=== PATIENT | female | born 1985 | race Caucasian/White ===

== ENCOUNTER → 2021-06-16 15:55 | Outpatient (CLI) | payer OTHER, SELFPAY ==
--- NOTE | ~2021-06-16 | US_ITS ---
EXAMINATION: US pelvic complete EXAM DATE: 06/16/2021 16:10 INDICATION: IUD . TECHNIQUE: Pelvic transabdominal sonogram was performed. There are multiple grayscale and Doppler im ages available for interpretation. There is no prior study for comparison. FINDINGS: Uterus measures 7.4 x 3.6 x 4.0 cm, with IUD centrally located inside the endometrial cavi ty. Endometrial stripe measures 4 mm, within normal limits. There is no free pelvic fluid. Right adnexa: The ovary measures 1.8 x 2.2 x 2.0 cm and is morphologically normal. Ovarian vascular f low confirmed. Left adnexa: The ovary measures 1.7 x 2.4 x 2.5 cm and is morphologically normal. Ovarian vascular fl ow confirmed. IMPRESSION: 1. Unremarkable pelvic ultrasound exam. Reviewed, dictated and finalized at location B. 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
== END ==
PROVIDERS: Visit Provider Nurse Practitioner
DX: Z30.431 Encounter for routine checking of intrauterine contraceptive device (principal)
CPT/HCPCS: 76856

== ENCOUNTER 2022-05-01 17:22 | Emergency (ER) | payer OTHER, SELFPAY ==
[2022-05-01 17:51] VITALS: BP 100/52; PULSE 98; RESP 16; TEMP 37.6; O2SAT 100
--- NOTE | 2022-05-01 18:50 | ED.URI ---
HPI - URI/Sore Throat General Chief Complaint: Upper Respiratory Infection Stated Complaint: body aches/chills/fever Time Seen by Provider: 05/01/22 18:40 Source: patient and RN notes reviewed Mode of arrival: ambulatory Limitations: no limitations History of Present Illness HPI Narrative: 37-year-old female presented for complaints of sore throat, body aches, headache and chills. She endorses decreased appetite, fatigue and slept all day today. She endorses as her daughter is sick with similar symptoms. Denies shortness of breath, wheezing, nausea, vomiting, diarrhea. Took otc med without relief. MD elicited complaint: cough Related Data Home Medications Medication Instructions Recorded Confirmed levonorgestrel 20 mcg/24 hours (8 1 device intrauterine ONCE 05/20/20 05/01/22 yrs) 52 mg intrauterine device (Mirena) fluoxetine 10 mg tablet 30 mg PO DAILY 05/01/22 05/01/22 Allergies Allergy/AdvReac Type Severity Reaction Status Date / Time No Known Allergies Allergy Verified 05/01/22 18:09 Review of Systems Review of Systems: Per HPI [facility] Family History Family History Sibling , 60 years old Renal cell carcinoma Grandparent Lung cancer Social History Social History Social History: Smoking status: Never smoker Second hand tobacco smoke exposure: No Alcohol intake: current Alcohol use details: Occasionally Substance use: former Substance use type: marijuana Gender identity (if verbalized by the patient): Female Sexual Orientation (if Verbalized by the Patient): Straight or Heterosexual Exam Narrative: GENERAL: Ill-appearing, nontoxic HEAD: Normocephalic EYES: PERRLA, conjunctivae clear ENT: Mucous membranes moist. TM pearly nicholson with dull light reflex bilaterally; no tragal tenderness. Oropharynx erythematous without lesions or exudate, no drooling, no hoarseness, no trismus, uvula midline. CHEST: Clear to auscultation, breath sounds equal. No wheezing, rhonchi, rales, or stridor. No respiratory distress, speaks in full sentences. HEART: Regular rate and rhythm. No murmur heard. SKIN: Warm, dry, no rash. NEURO: Alert and oriented x3. PSYCH: Normal mood and affect Course Course Emergency Course: Patient is aware of diagnosis, understands and agrees to treatment plan. Anticipatory guidance given. Patient agrees to follow-up as directed and is aware of reasons to seek care at the emergency department. Portions of this record may have been created with voice recognition software Level of Care: Express Care Visit Vital Signs Vital signs: Vital Signs Temperature 99.7 F H 05/01/22 17:51 Pulse Rate 98 05/01/22 17:51 Respiratory Rate 16 05/01/22 17:51 Blood Pressure 100/52 L 05/01/22 17:51 Pulse Oximetry 100 05/01/22 17:51 Oxygen Delivery Room Air 05/01/22 17:51 Temperature 99.7 F H 05/01/22 17:51 Pulse Rate 98 05/01/22 17:51 Respiratory Rate 16 05/01/22 17:51 Blood Pressure 100/52 L 05/01/22 17:51 Pulse Oximetry 100 05/01/22 17:51 Oxygen Delivery Room Air 05/01/22 17:51 reviewed MDM - URI/Sore Throat MDM Narrative Medical decision making narrative: Strep flu negative. Results reviewed with patient. She declines strep culture. Advised supportive measures and signs/symptoms to go to the ER. Pt is appropriate for outpt treatment and f/u. Differential Diagnosis Differential diagnosis: Likely upper respiratory infection, sinusitis, viral infection, influenza and pharyngitis Discharge Plan Discharge Clinical Impression: Viral infection Patient Disposition: Home, Self-Care Condition: Stable Instructions: Viral Syndrome (ED) Additional Instructions: Recommend Flonase spray and Zyrtec (or Claritin/Sonia) over the counter Cough syrup may cause drowsiness; avoid driving or take it at night
== END 2022-05-01 19:11 | disposition home or self-care (01) ==
PROVIDERS: Emergency Provider Nurse Practitioner Family; PCP Family Medicine
DX: B34.9 Viral infection, unspecified (principal)
CPT/HCPCS: 87804; 87880; 99213; G0463

== ENCOUNTER → 2023-07-02 15:59 | Outpatient (CLI) | payer OTHER, SELFPAY ==
--- NOTE | ~2023-07-02 | MM_ITS ---
EXAMINATION: MM screening shanna BI w dequan HISTORY: Screening TECHNIQUE: Craniocaudal and mediolateral oblique 3-D tomosynthesis images were obtained and synthetic 2-D images were generated. CAD analysis was submitted and interpreted. COMPARISON: No prior mammogram is available for comparison at this institution. BREAST PARENCHYMAL COMPOSITION: Not dense: There are scattered areas of fibroglandular density. FINDINGS: There are asymmetries in the upper outer quadrant of the right breast. There is a focal asy mmetry superiorly in the left breast on MLO view. IMPRESSION: 1. Bilateral breast asymmetries. 2. Additional mammographic views and possible breast ultrasound are recommended. BI-RADS Category 0: Incomplete: Needs additional imaging evaluation. Reviewed, dictated and finalized at location A. [employer] TECHNICIAN IMPRESSION: 1. Bilateral breast asymmetries. 2. Additional mammographic views and possible breast ultrasound are recommended . BI-RADS Category 0: Incomplete: Needs additional imaging evaluation.
== END ==
PROVIDERS: PCP Nurse Practitioner; Visit Provider Nurse Practitioner
DX: Z12.31 Encounter for screening mammogram for malignant neoplasm of breast (principal); R92.8 Other abnormal and inconclusive findings on diagnostic imaging of breast
CPT/HCPCS: 77063; 77067

== ENCOUNTER 2023-08-20 07:40 | Outpatient (CLI) | payer OTHER, SELFPAY ==
--- NOTE | ~2023-08-20 | MMUS_ITS ---
EXAMINATION: MM diagnostic shanna BI w dequan, US breast RT complete HISTORY: Follow-up bilateral breast asymmetries TECHNIQUE: Additional 3-D tomosynthesis images of the breasts were performed and synthetic 2-D images were generated. CAD analysis was submitted and interpreted. High resolution complete right breast ul trasound was performed. COMPARISON: 07/02/2023 BREAST PARENCHYMAL COMPOSITION: Not dense: There are scattered areas of fibroglandular density. FINDINGS: MAMMOGRAPHIC FINDINGS: There are no suspicious masses, calcifications or architectural distortion in either breast to sugges t malignancy. There are persistent asymmetries in the upper outer quadrant of the right breast. ULTRASOUND: Complete US of all 4 quadrants of the right breast and retroareolar region was reviewed. At 11:00, 5 cm from the nipple, there is an oval hypoechoic mass with parallel orientation, no posterior features and no internal vascularity measuring 4 mm. IMPRESSION: 1. Probable benign right breast mass at 11:00, 5 cm from the nipple. No definite mammographic correla te. 2. Recommend 6 month follow-up Limited right breast ultrasound BI-RADS category 3, probably benign findings. Reviewed, dictated and finalized at location B. IMPRESSION: 1. Probable benign right breast mass at 11:00, 5 cm from the nipple. No definit e mammographic correlate. 2. Recommend 6 month follow-up Limited right breast ultrasound BI-RADS category 3, probably benign findings.
== END 2023-08-20 07:41 ==
LOC: MICIMG 07:40
PROVIDERS: PCP Physician Assistant; Visit Provider Physician Assistant
DX: R92.8 Other abnormal and inconclusive findings on diagnostic imaging of breast (principal)
CPT/HCPCS: 76641; 77062; 77066; G0279

== ENCOUNTER 2023-11-12 08:17 | Outpatient (CLI) | payer OTHER, SELFPAY ==
--- NOTE | ~2023-11-12 | XR_ITS ---
Clinical Indication: Cough PA and lateral views of the chest: Comparison: None Findings: The lungs are clear, without evidence of focal consolidation or pleural effusion. Cardiome diastinal silhouette is within normal limits. Bones and soft tissues are unremarkable. Impression: Normal chest. Reviewed, dictated and finalized at location . Impression: Normal chest.
[2023-11-12 09:16] LABS: SARS-CoV-2 RNA PCR Positive (Negative)
== END 2023-11-12 08:18 | disposition home or self-care (01) ==
LOC: ANHLAB 08:18
PROVIDERS: Student in an Organized Health Care Education/Training Program; PCP Family Medicine; Visit Provider Family Medicine
DX: R05.9 Cough, unspecified (principal); R09.89 Other specified symptoms and signs involving the circulatory and respiratory systems; Z20.822 Contact with and (suspected) exposure to COVID-19
CPT/HCPCS: 71046; 87635

== ENCOUNTER 2024-02-28 12:20 | Outpatient (CLI) | payer OTHER, SELFPAY ==
--- NOTE | ~2024-02-28 | XR_ITS ---
XR chest 2V 02/28/2024 12:43 Indication: Shortness of breath, weakness and chills Procedure: 2 view chest Comparison: 11/12/2023 Findings: Borderline heart size. Mild pulmonary vascular congestion. Bibasilar atelectasis. No focal pneumonia, edema, pleural effusion or pneumothorax. Impression: 1: Bibasilar atelectasis. Reviewed, dictated and finalized at location B. Impression: 1: Bibasilar atelectasis.
[2024-02-28 13:48] LABS: Influenza A QL RT-PCR Negative (Negative); Influenza B QL RT-PCR Negative (Negative); RSV RNA, RT-PCR Negative (Negative); SARS-CoV-2 RNA PCR Negative (Negative)
== END 2024-02-28 12:21 | disposition home or self-care (01) ==
LOC: ANHLAB 12:21
PROVIDERS: PCP Family Medicine; Visit Provider Student in an Organized Health Care Education/Training Program
DX: R06.02 Shortness of breath (principal); R68.83 Chills (without fever); R53.1 Weakness; R91.8 Other nonspecific abnormal finding of lung field
CPT/HCPCS: 71046; 87637

== ENCOUNTER 2024-03-04 07:50 | Outpatient (CLI) | payer OTHER, SELFPAY ==
--- NOTE | ~2024-03-04 | US_ITS ---
EXAMINATION TYPE: US breast RT limited COMPARISON: 08/20/2023 REASON FOR STUDY: R92.8 - Other abnormal and inconclusive findings on diagn... TECHNIQUE: Targeted sonographic evaluation of the right breast was performed. INTERPRETATION: At the 11:00 position right breast, 5 cm from the nipple, there is a stable 4 mm round hypoechoic mas s, without posterior shadowing. This is circumscribed, and wider than tall. IMPRESSION: Stable 4 mm mass the 11:00 position right breast, most likely benign. Additional six-month follow-up exam recommended to assure continued stability. BI-RADS CATEGORY: BI-RADS 3: Probably benign Reviewed, dictated and finalized at location M. IMPRESSION: Stable 4 mm mass the 11:00 position right breast, most likely benign. Additiona l six-month follow-up exam recommended to assure continued stability. BI-RADS CATEGORY: BI-RADS 3: Probably benign
== END 2024-03-04 07:51 | disposition home or self-care (01) ==
LOC: MICIMG 07:51
PROVIDERS: PCP Family Medicine; Visit Provider Student in an Organized Health Care Education/Training Program
DX: R92.8 Other abnormal and inconclusive findings on diagnostic imaging of breast (principal)
CPT/HCPCS: 76642

== ENCOUNTER 2024-11-23 08:16 | Outpatient (CLI) | payer OTHER, SELFPAY ==
--- NOTE | ~2024-11-23 | US_ITS ---
EXAMINATION: MM diagnostic shanna BI w dequan, US breast RT Limited INDICATION: 39-year old female; BI-RADS 3 short-term follow-up right breast mass and screening left b reast. COMPARISON: 08/20/2023, 07/02/2023, 03/04/2024 TECHNIQUE: Digital breast tomosynthesis True lateral CC and MLO views of BILATERAL breasts were obta ined with computer-aided detection to assist in interpretation of the study. FINDINGS: There are scattered areas of fibroglandular density. Asymmetries in the upper breast bilaterally reidentified remained unchanged in the interval. There ar e no other suspicious masses, calcifications, architectural distortion or other abnormality in eithe r breast. RIGHT BREAST ULTRASOUND FINDINGS: A 0.4 x 0.3 x 0.4 cm circumscribed hypoechoic mass at 11:00 location 5 cm from the nipple in the RIGH T breast is reidentified and Unchanged. IMPRESSION: 1. RIGHT BREAST PROBABLY BENIGN FINDING THAT HAS DEMONSTRATED 15 MONTHS STABILITY SINCE THE INITIAL E VALUATION ON 08/20/2023. 2. NO MAMMOGRAPHIC EVIDENCE OF MALIGNANCY IN THE LEFT BREAST. RECOMMENDATION: 12 MONTH FOLLOW-UP RIGHT BREAST ULTRASOUND AND BILATERAL DIAGNOSTIC MAMMOGRAPHY. BI-RADS category 3, probably benign findings. Reviewed, dictated and finalized at location B. IMPRESSION: 1. RIGHT BREAST PROBABLY BENIGN FINDING THAT HAS DEMONSTRATED 15 MONTHS STABILI TY SINCE THE INITIAL EVALUATION ON 08/20/2023. 2. NO MAMMOGRAPHIC EVIDENCE OF MALIGNANCY IN THE LEFT BREAST. RECOMMENDATION: 12 MONTH FOLLOW-UP RIGHT BREAST ULTRASOUND AND BILATERAL DIAGNOSTIC MAMMOGRAPHY . BI-RADS category 3, probably benign findings.
== END 2024-11-23 08:17 | disposition home or self-care (01) ==
LOC: MICIMG 08:16
PROVIDERS: PCP Student in an Organized Health Care Education/Training Program; Visit Provider Student in an Organized Health Care Education/Training Program
DX: N63.10 Unspecified lump in the right breast, unspecified quadrant (principal); R92.8 Other abnormal and inconclusive findings on diagnostic imaging of breast
CPT/HCPCS: 76642; 77062; 77066; G0279